=== PATIENT | male | born 1950 | race Caucasian/White ===

== ENCOUNTER 2019-03-20 09:59 | Outpatient (CLI) | payer MEDICARE, BC ==
[~2019-03-20] VITALS: Ht 175.3 cm; Wt 95.7 kg
[2019-03-20 10:20] VITALS: BP 128/69
[2019-03-20] MEDS ORDERED: VITAMIN B COMP1 EAC2 ORAL (13:30)
[2019-03-20] MEDS ORDERED: CRESTOR10 M2 ORAL (13:30)
[2019-03-20] MEDS ORDERED: PLAVIX75 MG ORAL (13:30)
[2019-03-20] MEDS ORDERED: METOPROLOL SUCC25 MG ORAL (13:30)
[2019-03-20] MEDS ORDERED: UBIQUINOL100 MG PO (13:30)
[2019-03-20] MEDS ORDERED: AVAPRO75 MG ORAL (13:30)
[2019-03-20] MEDS ORDERED: VITAMIN C500 M1 ORAL (13:30)
--- NOTE | 2019-03-22 01:45 | Consultation ---
DATE OF CONSULTATION: 03/20/2019 CONSULTING PHYSICIAN: Braden Kaufman M.D. CHIEF COMPLAINT: Abdominal bloating. HISTORY OF PRESENT ILLNESS: This is a very pleasant 68-year-old male, patient of . He was referred to us for evaluation of possible repeat colonoscopy and abdominal bloating. PAST MEDICAL HISTORY: 1. Coronary artery disease. 2. Hypertension. PAST SURGICAL HISTORY: Coronary stent placement. MEDICATIONS: Please see medication reconciliation list. FAMILY HISTORY: No family history of GI malignancies. SOCIAL HISTORY: The patient drinks alcohol socially. Denies any tobacco or IV drug abuse. ALLERGIES: Allergic to cats. REVIEW OF SYSTEMS: A 10-point review of systems was performed and positive for bloating. PHYSICAL EXAMINATION: VITAL SIGNS: Temperature 97.8, blood pressure 128/69, pulse is 62, respirations 20. HEENT: Normocephalic and atraumatic. Sclerae anicteric. NECK: Supple. No evidence of obvious lymphadenopathy. CARDIOVASCULAR: Regular rate and rhythm. Plus S1 and S2. No obvious murmur. LUNGS: Decreased breath sounds bilaterally based on the supine exam. ABDOMEN: Soft and nontender. No rebound. No guarding. No peritoneal sign. EXTREMITIES: No cyanosis. No clubbing. No edema. ASSESSMENT AND PLAN: This is a 68-year-old male with severe bloating, possible history of SIBO. Plan to treat with Xifaxan for 14 days. The patient was offered colonoscopy. He was not sure when was his last colonoscopy. He thinks maybe about 3 to 4 years ago. He does not have the report. So, we would like to obtain the reports from office and address his colonoscopy issue on next visit. I want to thank for this kind referral. Braden Kaufman M.D. DR: ANNAMARIA JOB#: [id number] CC:
== END 2019-03-20 13:08 | disposition home or self-care (01) ==
LOC: PAN 09:59
DX: R14.0 Abdominal distension (gaseous) (principal); I11.9 Hypertensive heart disease without heart failure; I25.10 Atherosclerotic heart disease of native coronary artery without angina pectoris; Z95.5 Presence of coronary angioplasty implant and graft

== ENCOUNTER 2019-05-01 09:13 | Outpatient (CLI) | payer MEDICARE, BC ==
[~2019-05-01 09:13] MED LIST: AVAPRO75 MG ORAL; CRESTOR10 M2 ORAL; METOPROLOL SUCC25 MG ORAL; PLAVIX75 MG ORAL; UBIQUINOL100 MG PO; VITAMIN B COMP1 EAC2 ORAL; VITAMIN C500 M1 ORAL
--- NOTE | 2019-05-01 09:51 | General Progress Note ---
Assessment/Plan Assessment/Plan: 1. Coronary artery disease. 2. Hypertension. 3. SIBO 4. H/o colon polyps next colonoscopy for &/2020 s/p xifaxan treatment trial of VSL #3 avoid lactose Subjective ROS Limited/Unobtainable: Yes Allergies: Coded Allergies: CAT DANDER (Verified Allergy, Unknown, 03/20/19) Objective General Appearance: alert EENT: normal ENT inspection Neck: supple Cardiovascular: normal rate Respiratory/Chest: lungs clear Abdomen: normal bowel sounds, non tender, soft Extremities: non-tender Braden Kaufman MD May 01, 2019 09:51
[2019-05-01 10:44] VITALS: BP 125/74
== END 2019-05-01 11:13 | disposition home or self-care (01) ==
LOC: PAN 09:13
DX: K56.609 Unspecified intestinal obstruction, unspecified as to partial versus complete obstruction (principal); I11.9 Hypertensive heart disease without heart failure; Z86.010 Personal history of colon polyps

== ENCOUNTER 2019-11-20 09:50 | Outpatient (CLI) | payer MEDICARE, BC ==
[2019-11-20 10:07] VITALS: BP 115/65
--- NOTE | 2019-11-26 14:59 | General Progress Note ---
Assessment/Plan Assessment/Plan: Assessment/Plan Assessment/Plan: 1. Coronary artery disease. 2. Hypertension. 3. SIBO 4. H/o colon polyps needs repeat colonoscopy patient was given the prep and he will call to schedule s/p xifaxan treatment Subjective ROS Limited/Unobtainable: Yes Allergies: Coded Allergies: CAT DANDER (Verified Allergy, Unknown, 03/20/19) Objective General Appearance: alert EENT: normal ENT inspection Neck: supple Cardiovascular: normal rate Respiratory/Chest: decreased breath sounds Abdomen: normal bowel sounds, non tender, soft Extremities: non-tender Braden Kaufman MD Nov 26, 2019 14:59
== END 2019-11-20 11:50 | disposition home or self-care (01) ==
LOC: PAN 09:50
DX: K56.609 Unspecified intestinal obstruction, unspecified as to partial versus complete obstruction (principal); I11.9 Hypertensive heart disease without heart failure; I25.10 Atherosclerotic heart disease of native coronary artery without angina pectoris; Z86.010 Personal history of colon polyps
CPT/HCPCS: 99212